=== PATIENT | male | born 1975 | race Caucasian/White ===

== ENCOUNTER 2019-10-30 14:13 | Emergency (ER) | payer OTHER ==
[~2019-10-30] VITALS: Ht 185.4 cm; Wt 107.7 kg
[2019-10-30 14:17] VITALS: BP 141/96
--- NOTE | 2019-10-30 15:10 | NUR ---
PT IS 44 YO MALE C/O LEFT BICEP PAIN AFTER SPARRING DURING MARTIAL ARTS, DIFFICULTY LIFTING THINGS NOW,+CMS TO LEFT HAND, WAITING TO BE EVALUATED BY PROVIDER
--- NOTE | 2019-10-30 16:51 | NUR ---
MACHINE TOOL DRESSER AT BEDSIDE TO PLACE SPLINT TO LEFT ARM
[2019-10-30] MEDS ORDERED: LORA-269 PO (17:14)
--- NOTE | 2019-10-30 17:15 | NUR ---
Gabriela GUTIÉRREZ KENNEL AIDE AT BEDSIDE TO EVALUATE SPLINT
== END 2019-10-30 17:17 | disposition home or self-care (01) ==
LOC: ER 14:13
DX: S46.212A Strain of muscle, fascia and tendon of other parts of biceps, left arm, initial encounter (principal); W51.XXXA Accidental striking against or bumped into by another person, initial encounter; Y93.75 Activity, martial arts; Y92.89 Other specified places as the place of occurrence of the external cause; Y99.8 Other external cause status
CPT/HCPCS: 29105; 99283

== ENCOUNTER 2021-07-20 19:07 | Emergency (ER) | payer OTHER ==
[~2021-07-20] VITALS: Ht 182.9 cm; Wt 117.0 kg
[~2021-07-20 19:07] MED LIST: LORA-269 PO
[2021-07-20 19:24] VITALS: BP 146/91
--- NOTE | 2021-07-20 19:33 | NUR ---
PATIENT SEEN BY FUEL OIL CLERK IN TRIAGE.
[2021-07-20] MEDS ORDERED: dexamethasone sod phosphate 10mg/ml inj PO STA (20:11)
[2021-07-20] MEDS ORDERED: ketorolac trometh inj. 60 MG/2 ML VIAL IM ONE (20:15)
[2021-07-20] MEDS ORDERED: IBUP-1986 PO (20:16)
== END 2021-07-20 21:01 | disposition home or self-care (01) ==
LOC: ER 19:08
DX: J39.2 Other diseases of pharynx (principal); J30.2 Other seasonal allergic rhinitis; Z88.8 Allergy status to other drugs, medicaments and biological substances; Z79.899 Other long term (current) drug therapy; Z98.890 Other specified postprocedural states
CPT/HCPCS: 96372; 99283; J1100; J1885

== ENCOUNTER 2021-07-21 20:54 | Emergency (ER) | payer OTHER ==
[~2021-07-21] VITALS: Ht 182.9 cm; Wt 111.3 kg
[~2021-07-21 20:54] MED LIST changes: +IBUP-1986 PO
[2021-07-21] MEDS ORDERED: ketorolac trometh inj. 60 MG/2 ML VIAL IM ONE (22:10)
[2021-07-21 22:15] VITALS: BP 140/90
[2021-07-21] MEDS ORDERED: iohexol 300mg/ml 100ml inj. ONE (23:18)
[2021-07-21 23:59] LABS: BASOPHILS # (AUTO) 0.1 X10'3 (0-0.2); BASOPHILS % (AUTO) 0.5 % (0-1); EOSINOPHILS % (AUTO) 0.4 % (0-6); HEMATOCRIT 39.9 % (42.0-52.0); LYMPHOCYTES # (AUTO) 1.6 X10'3 (1.1-4.8); MEAN CORPUSCULAR HEMOGLOBIN 24.6 PG (27.0-31.0); MEAN CORPUSCULAR HGB CONC 32.7 g/dL (33.0-36.5); MEAN CORPUSCULAR VOLUME 75.1 FL (78-98); MEAN PLATELET VOLUME 8.9 FL (7.4-10.4); MONOCYTES # (AUTO) 1.1 X10'3 (0-0.9); MONOCYTES % (AUTO) 9.3 % (2-12); NEUTROPHILS # (AUTO) 8.8 X10'3 (1.8-7.7); NEUTROPHILS % (AUTO) 75.8 % (42-75); PLATELET COUNT 407 X10'3 (140-440); RED BLOOD COUNT 5.31 X10'6 (4.70-6.10); RED CELL DISTRIBUTION WIDTH 17.1 % (11.5-14.5); WHITE BLOOD COUNT 11.6 X10'3 (4.5-11.0)
[2021-07-22 00:06] LABS: ALANINE AMINOTRANSFERASE 28 U/L (12-78); ALBUMIN 3.3 G/DL (3.4-5.0); ALBUMIN/GLOBULIN RATIO 0.8 (1.1-1.5); ALKALINE PHOSPHATASE 76 IU/L (46-116); ANION GAP 11 (8-16); ASPARTATE AMINO TRANSFERASE 9 U/L (10-37); BILIRUBIN,TOTAL 0.2 MG/DL (0.1-1.0); BLOOD UREA NITROGEN 14 MG/DL (7-18); BUN/CREATININE RATIO 11.9 (5.4-32.0); CALCIUM 8.9 MG/DL (8.5-10.1); CHLORIDE 102 MMOL/L (99-107); CREATININE 1.18 MG/DL (0.60-1.10); GLUCOSE 218 MG/DL (70-104); POTASSIUM 3.4 MMOL/L (3.5-5.1); SODIUM 140 MMOL/L (135-145); TOTAL CARBON DIOXIDE 26.8 MMOL/L (24-32); TOTAL PROTEIN 7.2 G/DL (6.4-8.2); eGFR 67 ML/MIN
== END 2021-07-22 00:14 | disposition home or self-care (01) ==
LOC: ER 20:54
DX: J39.2 Other diseases of pharynx (principal); Z20.822 Contact with and (suspected) exposure to COVID-19; Z88.8 Allergy status to other drugs, medicaments and biological substances; Z79.899 Other long term (current) drug therapy; Z98.890 Other specified postprocedural states
CPT/HCPCS: 36415; 70491; 80053; 85025; 87081; 87880; 96372; 99285; J1885; Q9967

== ENCOUNTER 2021-08-17 22:43 | Inpatient (IN) | payer OTHER ==
[~2021-08-17] VITALS: Ht 185.4 cm; Wt 113.0 kg
[2021-08-17] MEDS ORDERED: vancomycin/NS 1 GM ADD-VANTAGE 250 ML IV ONE (23:05)
[2021-08-17] MEDS ORDERED: CefTRIAXone 2gm/NS 100ml IVPB 100 ML IV ONE (23:05)
[2021-08-17] MEDS ORDERED: ketorolac tromethamine 15mg/ml inj. IV ONE (23:05)
[2021-08-17] MEDS ORDERED: normal saline 1000ML IV soln IV ONE (23:05)
[2021-08-17 23:21] LABS: BASOPHILS # (AUTO) 0.1 X10'3 (0-0.2); BASOPHILS % (AUTO) 0.8 % (0-1); EOSINOPHILS # (AUTO) 0.3 X10'3 (0-0.9); EOSINOPHILS % (AUTO) 1.8 % (0-6); HEMATOCRIT 41.6 % (42.0-52.0); HEMOGLOBIN 13.4 g/dl (14.0-17.9); LYMPHOCYTES # (AUTO) 0.9 X10'3 (1.1-4.8); MEAN CORPUSCULAR HGB CONC 32.2 g/dL (33.0-36.5); MEAN CORPUSCULAR VOLUME 71.2 FL (78-98); MEAN PLATELET VOLUME 8.3 FL (7.4-10.4); MONOCYTES # (AUTO) 1.4 X10'3 (0-0.9); MONOCYTES % (AUTO) 8.6 % (2-12); NEUTROPHILS # (AUTO) 13.1 X10'3 (1.8-7.7); NEUTROPHILS % (AUTO) 82.8 % (42-75); PLATELET COUNT 490 X10'3 (140-440); RED BLOOD COUNT 5.83 X10'6 (4.70-6.10); RED CELL DISTRIBUTION WIDTH 18.2 % (11.5-14.5); WHITE BLOOD COUNT 15.8 X10'3 (4.5-11.0)
[2021-08-17 23:23] LABS: CLARITY,URINE CLEAR (Clear); COLOR,URINE YELLOW (Yellow); GLUCOSE, URINE 100 mg/dl (Neg); KETONES,URINE NEGATIVE (Neg); LEUKOCYTE ESTERASE ,URINE NEGATIVE (Neg); NITRITES, URINE NEGATIVE (Neg); OCCULT BLOOD,URINE TRACE-INTACT (Neg); PH,URINE 8.5 (4.8-8.0); PROTEIN,URINE 100 mg/dl (Neg)
[2021-08-17 23:24] LABS: UA COLLECTION TYPE CLN CATCH MIDSTREAM
[2021-08-17] MEDS ORDERED: morphine 4 MG/ML inj SYRINge IV ONE (23:25)
[2021-08-17] MEDS ORDERED: ondansetron/PF 4mg/2ml inj IV ONE (23:25)
[2021-08-17 23:35] LABS: ALANINE AMINOTRANSFERASE 33 U/L (12-78); ALBUMIN 3.2 G/DL (3.4-5.0); ALBUMIN/GLOBULIN RATIO 0.7 (1.1-1.5); ALKALINE PHOSPHATASE 69 IU/L (46-116); ANION GAP 10 (8-16); ASPARTATE AMINO TRANSFERASE 19 U/L (10-37); BILIRUBIN,TOTAL 0.4 MG/DL (0.1-1.0); BLOOD UREA NITROGEN 13 MG/DL (7-18); BUN/CREATININE RATIO 10.1 (5.4-32.0); C-REACTIVE PROTEIN 11.28 MG/DL (0.0-0.5); CALCIUM 8.6 MG/DL (8.5-10.1); CHLORIDE 102 MMOL/L (99-107); CREATININE 1.29 MG/DL (0.60-1.10); GLUCOSE 100 MG/DL (70-104); POTASSIUM 4.1 MMOL/L (3.5-5.1); SODIUM 137 MMOL/L (135-145); TOTAL CARBON DIOXIDE 25.4 MMOL/L (24-32); TOTAL PROTEIN 7.9 G/DL (6.4-8.2); eGFR 61 ML/MIN
[2021-08-17 23:38] LABS: BACTERIA,URINE FEW /HPF (Neg); MUCUS STRANDS NONE SEEN /LPF (Neg); SQUAMOUS EPITHELIAL CELL,UR FEW /LPF (FEW); WBC,URINE 0-4 /HPF (0-4)
[2021-08-18 01:25] LABS: TOTAL CELLS COUNTED 100
[2021-08-18 01:26] LABS: ANISOCYTOSIS 2+; PLATELET ESTIMATE INCREASED
[2021-08-18 01:27] LABS: LARGE PLATELETS FEW; TARGET CELLS FEW
[2021-08-18 01:28] LABS: STOMATOCYTES FEW
[2021-08-18] MEDS ORDERED: ondansetron/PF 4mg/2ml inj IV ONE (03:45)
[2021-08-18] MEDS ORDERED: HYDROmorphone 1 mg/ml syringe IV ONE (03:45)
[2021-08-18] MEDS ORDERED: potassium CL 10mEq/100ml bag 100 ML IV PRN (04:50)
[2021-08-18] MEDS ORDERED: magnesium 2GM in 50ml NS 50 ML IV PRN (04:50)
[2021-08-18] MEDS ORDERED: magnesium 4gm in 100ml NS 100 ML IV PRN (04:50)
[2021-08-18] MEDS ORDERED: HYDROcodone/acetaminophen 10/325mg tab PO PRN (04:50)
[2021-08-18] MEDS ORDERED: HYDROcodone/acetaminophen 5mg/325mg tablet PO PRN (04:50)
[2021-08-18] MEDS ORDERED: magnesium Cl slow-release 64mg tablet PO PRN (04:50)
[2021-08-18] MEDS ORDERED: potassium Cl 20 mEq SR tablet PO PRN ×2 (04:50)
[2021-08-18] MEDS ORDERED: mag hydrox/Alum hydrox/simeth 30ml oral suspension PO PRN (04:50)
[2021-08-18] MEDS ORDERED: morphine 2 MG/ML inj. syringe IV PRN ×2 (04:50)
[2021-08-18] MEDS ORDERED: ondansetron/PF 4mg/2ml inj IV PRN (04:50)
[2021-08-18] MEDS ORDERED: magnesium hydroxide 30ml (MOM) UD suspension PO PRN (04:50)
[2021-08-18] MEDS ORDERED: acetaminophen 325mg tablet PO PRN (04:50)
[2021-08-18] MEDS ORDERED: normal saline 1000ml 1,000 ML IV SCH (04:50)
[2021-08-18 06:26] VITALS: BP 127/84
[2021-08-18 07:46] LABS: MAGNESIUM 2.3 MG/DL (1.5-2.4); POTASSIUM 4.2 MMOL/L (3.5-5.1)
[2021-08-18] MEDS ORDERED: heparin, porcine 5000 units/ml vial SQ SCH (08:00)
[2021-08-18] MEDS ORDERED: K and/or MAG REPLACEMENT MC SCH (08:00)
[2021-08-18] MEDS ORDERED: docusate sod 100mg capsule PO SCH (08:00)
--- NOTE | 2021-08-18 08:57 | NUR ---
PAGER ID: [phone] MESSAGE: [phone]. Can patient have regular diet? Currently on heart healthy, only has had tonsillectomy and bicep surgery in past. Falguni ACEVES [id number]
[2021-08-18] MEDS ORDERED: CLIN300C70 PO (09:43)
[2021-08-18] MEDS ORDERED: HYDR-3965 PO (09:43)
--- NOTE | 2021-08-18 10:53 | NUR ---
Discharge instructions reviewed with patient. IV removed, catheter tip intact. Belongings with patient. Patient free from injury.
[2021-08-18] MEDS ORDERED: vancomycin/NS 1 GM ADD-VANTAGE 250 ML X 1 DOSE IV SCH (11:00)
[2021-08-18] MEDS ORDERED: cefTRIAXone 1g/NS 100ml IVPB 100 ML IV SCH (23:00)
[2021-08-19] MEDS ORDERED: VANCOMYCIN LEVEL IV ONE (10:30)
== END 2021-08-18 11:00 | disposition home or self-care (01) | DRG 603 ==
LOC: ER 22:44 → EDBEDREQSVC 08-18 03:35 → EDBEDREQ 08-18 03:35 → EDBEDREQTM 08-18 03:35 → ED HOLD 08-18 04:52 → EDBEDREQ 08-18 05:13 → SUR 3N 08-18 07:08
PROVIDERS: ADMIT Internal Medicine; ATTEND Internal Medicine
DX: L03.116 Cellulitis of left lower limb (principal); F41.9 Anxiety disorder, unspecified; Z88.5 Allergy status to narcotic agent; Z79.899 Other long term (current) drug therapy
CPT/HCPCS: 36415; 80053; 81001; 83605; 83735; 84132; 84145; 85007; 85025; 85651; 86140; 87040; 87081; 93971; 96365; 96366; 96368; 96375; 99285; G0378; J0696; J1170; J1644; J1885; J2270; J2405; J3370; J7030